=== PATIENT | female | born 1945 | race African-American/Black ===

== ENCOUNTER 2019-03-13 05:29 | Inpatient (IN) | payer OTHER, BC ==
[2019-02-28 10:20] LABS: HEMATOCRIT 33.2 % (37.0-47.0); MCH 28.4 pg (26.0-34.0); MCHC 33.1 g/dL (28.0-37.0); MCV 85.9 fL (80.0-100.0); RBC 3.86 mil/uL (4.20-5.00); RDW 14.1 % (10.5-14.5); WBC 5.6 thou/uL (4.0-11.0)
[2019-02-28 10:28] LABS: ALBUMIN 3.5 g/dL (3.4-5.0); CREATININE 1.7 mg/dL (0.6-1.0); POTASSIUM 4.3 mmol/L (3.5-5.1)
[2019-02-28 10:32] LABS: PROTIME 9.5 Seconds (9.3-11.4)
[2019-02-28 12:06] LABS: URINE BILIRUBIN NEGATIVE (Negative); URINE BLOOD NEGATIVE (Negative); URINE CLARITY CLEAR; URINE COLOR YELLOW; URINE GLUCOSE-RANDOM* NEGATIVE (Negative); URINE KETONES NEGATIVE (Negative); URINE LEUKOCYTES-REFLEX NEGATIVE (Negative); URINE NITRITE-REFLEX NEGATIVE (Negative); URINE PROTEIN (DIPSTICK) NEGATIVE (Negative); URINE UROBILINOGEN 0.2 E.U./dl (0.2-1.0)
[2019-03-01 01:06] LABS: GLYCOHEMOGLOBIN (HGB A1C) 6.8 % (4.8-5.6)
[~2019-03-13] VITALS: Ht 165.1 cm; Wt 113.9 kg
[2019-03-13] VITALS (10 sets, daily range): BP systolic 117–137; BP diastolic 61–81
[~2019-03-13 05:29] MED LIST: ASPIR 8181 MG PO; BAYER BACK & B1 EACH PO; IBUPROFEN 200200 M1 PO; LOSARTAN-HCTZ1 EACH PO; METFORMIN HCL500 MG PO; PRAVACHOL20 MG PO; SYNTHROID100 MC1 PO; VITAMIN D35000 UNI1 PO; XANAX 0.5 MG0.5 MG PO
--- NOTE | 2019-03-13 15:26 | NUR ---
PT ARRIVED ON UNIT FROM SURGERY APPRX.12:00. PT STABLE, VS STABLE. ORDERS IMPLEMENTED. PT ATE LUNCH AND TOERATED TI VERY WELL. C/O PAIN, MEDICATION REDUCED SCORE TO TWO. PT RESTING COMFORTABLY, WILL CONTINUE TO MONITOR.
[2019-03-14 05:51] VITALS: BP 137/65
[2019-03-14 05:55] LABS: HEMOGLOBIN 9.6 gm/dL (12.0-15.0); MCH 28.4 pg (26.0-34.0); MCV 86.2 fL (80.0-100.0); RBC 3.36 mil/uL (4.20-5.00); WBC 10.2 thou/uL (4.0-11.0)
--- NOTE | 2019-03-14 06:51 | NUR ---
Assumed pt care at 1900. Pt is A/OX4,VSS.Up with assist of 1 RW/GB to BR.Medicated for pain with Percocet, pt is allergic to Codeine can't take Hydrocodone will pass to day nurse. FREDDIE dsg in place R knee. Nicho hose/scd's in place. IVF infusing without problems. Resting comfortably at this time will continue to monitor.
[2019-03-14 07:18] VITALS: BP 130/59
--- NOTE | 2019-03-14 08:15 | NUR ---
While rounding on pt. she verbalized to this nurse that her right knee had gotten twisted. When she went to get up from the chair with her walker the chair had scooted away from her. She then landed back into the chair and her knee twisted. Pt. c/o increased pain. Ice pack applied and pain meds given (see emar) with some relief noted. Bed alarm is on.
--- NOTE | 2019-03-14 13:15 | O ---
[facility] [place] [address] OPERATIVE REPORT Name: BULMARO FINCH Room #: 449-I ADM IN M.R.#: [id number] Admission: 03/13/19 Attend Phys: Ron Chacon MD Discharge: Date of : 43 Report #: [id number] THIS REPORT FOR: //name// CC: DOLORES Chacon DATE OF SERVICE: 03/13/2019 PREOPERATIVE DIAGNOSIS: Right knee osteoarthritis. POSTOPERATIVE DIAGNOSIS: Right knee osteoarthritis. PROCEDURE: Right total knee arthroplasty using Navio robotic assistance. SURGEON: Ron Chacon MD GRANT WRITER: Karlie Stevens PA-C INDICATIONS FOR GRANT WRITER: Throughout the case, extensive retraction and manipulation of the knee was required. This was afforded to me by my car rental sales assistant. ANESTHESIA: LMA with an adductor canal block. IMPLANTS: Marie and Nephew size 5 Legion cobalt-chrome posterior stabilized femur, size 4 tibia, size 12 polyethylene and size 35 patella. TOURNIQUET TIME: 56 minutes. ESTIMATED BLOOD LOSS: 25 mL. COMPLICATIONS: None. SPECIMENS: None. CONDITION UPON LEAVING THE OPERATING ROOM: Stable. INDICATION FOR PROCEDURE: The patient is a 73-year-old female with severe right knee osteoarthritis. She had failed conservative measures for this and after discussion with her, she elected for right total knee arthroplasty. DESCRIPTION OF PROCEDURE: Risks, benefits, alternatives, complications were discussed in detail with the patient including but not limited to risk of anesthesia, risk of damage to nerves, arteries, blood vessels, risk for infection, bleeding, risk for continued knee pain and need for reoperation. Informed consent was obtained from the patient. Right knee was appropriately marked in the preoperative holding area. IV Ancef was given for preoperative [address] [address] OPERATIVE REPORT Name: BULMARO FINCH [place] Room #: 449-I [facility] ..#: [id number] Admission: 03/13/19 Attend Phys: Ron Chacon MD Discharge: Date of : 43 Report #: [id number] antibiotics. She was brought to the operating room and placed in supine position on operating room table. LMA anesthesia was induced without complication. Tourniquet was placed on the right thigh. Right lower extremity was prepped and draped in normal sterile fashion. Timeout was performed properly identifying the patient and procedure as well as the instrumentation and implants. All in the operating room were in agreement. Right lower extremity was exsanguinated, tourniquet was inflated. Tourniquet time was 56 minutes. Standard midline approach to knee was made with 10 blade through the skin. Dissection was taken down sharply to the fascia and deep flaps were developed medially and laterally. Fresh 10 blade was used to make a medial parapatellar arthrotomy and the knee was inspected. There was severe tricompartmental osteoarthritis. ACL and PCL were removed sharply. Osteophytes were removed from the femur. Reference pins were then placed in the femur and the tibia, and the knee was digitally mapped using the Navio robotic system. We sized the size 5 femur and a size 4 tibia with an 11 spacer. After acceptance of the intraoperative plan, the distal femoral cut was made with a Navio bur. The placed and pinned, and the chamfer cuts were made. After this, attention was turned to the tibia. A resection guide was placed using the Loggly system for placement and the tibial resection was made. After this, flexion and extension gaps were checked and was found to have good balance in flexion and extension both medially and laterally after removal of the medial tibial osteophytes. Tibia was sized, found to be a size 4. Size 4 tibial trial was placed, pinned and punched. A size 5 femoral trial was placed and the box cut was made. This was then trialed with a size 11 and then a size 12 polyethylene. Knee was taken through range of motion, found to have a millimeter laxity medially and laterally, both manually as well as digitally throughout range of motion. A 9 mm was then resected from the posterior surface of the patella and a size 35 patellar trial was placed. Knee was taken through range of motion, found to be stable, found to have good patellar tracking. Trial components were removed. Bony ends were thoroughly irrigated with normal saline. Final size 4 tibia, size 5 Legion cobalt chrome posterior stabilized femur and a size 35 patella were cemented in place using standard cementation techniques. While the cement cured, a periarticular injection consisting of morphine, ropivacaine, epinephrine and Toradol was placed around the knee joint capsule. After the cement cured, tourniquet was deflated. Hemostasis was obtained with Bovie cautery. Final size 12 polyethylene was placed. A gram of vancomycin was placed deep in the joint. The fascia was closed with 0 Vicryl, skin was closed with 2-0 Vicryl, 3-0 Monocryl. Dermabond and a FREDDIE dressing was applied. The patient tolerated this procedure well and went to recovery room under care of anesthesia postoperatively. <ELECTRONICALLY SIGNED> By: Ron Chacon MD 03/14/19 1315 [id number] Ron Chacon MD /nt
--- NOTE | 2019-03-14 14:24 | NUR ---
PT ADMITTED RELATED TO RIGHT TKR. CM REVIEWED CHART AND SPOKE WITH CARE TEAM. CM MET WITH PT AT BEDSIDE THIS DAY. PT IS A&O X4. CM ROLE INTRODUCED. PT INDICATED SHE LIVES IN AN APARTMENT WITH HER GRANDSON MICHELLEHT 6 STEPS TO ENTER AND NO STEPS INSIDE. PT INDICATED SHE HAD USED A CANE TO ASSIST WITH MONILITY VISUAL STYLIST. PT INDICATED SHE NEEDS A FWW FOR USE UPON DC. ISSUED BY [facility]. PT INDICATED DESIRE TO HAVE HH SERVICES SHE DOESN'T HAVE TRNSPORT TO OP PT. [facility] IS ABLE TO ACCEPT PT. IT IS ANTICPATED THAT PT WILL DC HOME THIS EVENING WITH [facility] PT AND A WALKER FROM [employer]. NO OTHER CM INTERVENTION INDICATED. CASE CLOSED.
[2019-03-14 15:23] VITALS: BP 136/64
[2019-03-14] MEDS ORDERED: NEURONTIN 300300 M1 PO (15:29)
[2019-03-14] MEDS ORDERED: ASPIR 8181 MG PO (15:29)
--- NOTE | 2019-03-14 16:32 | NUR ---
ASSUMED CARE OF PT AT APPROX 0700. PT IS ALERT AND ORIENTED X4, ABLE TO MAINTAIN 02 SAT >90 ON RA. DENIES PAIN CURRENTLY AND SOA. WORKS WELL WITH PT/OT. ASSESSMENT CHARTED. EVEN NON LABROED BREATHING. NAD NOTED. WORKING WELL TOWARDS DC WITH POSSIBLE ANTICIPATED DC TOMORROW. WILL CONTINUE TO MONITOR.
[2019-03-14 19:05] VITALS: BP 134/63
--- NOTE | 2019-03-14 20:25 | NUR ---
Call placed to Dr. Chacon and I spoke to the physician perinatal breastfeeding assistant Ms. Stevens. She was informed of pt. reporting that her knee had gotten twisted and it was more swollen and painful. No new orders at this time.
[2019-03-15 04:55] VITALS: BP 104/46
--- NOTE | 2019-03-15 05:43 | NUR ---
Pt. rested quietly at intervals during the night when checked on during frequent rounds. Up to the bathroom with walker,gait belt and one person assist. Pt. c/o itching and prn benadryl and hydroxyzine given during the shift (see emar) with some relief noted. Dressing dry and intact to right knee. Bed alarm is on.
[2019-03-15 06:30] LABS: HEMOGLOBIN 9.2 gm/dL (12.0-15.0); MCH 28.3 pg (26.0-34.0); MCHC 32.9 g/dL (28.0-37.0); MCV 86.1 fL (80.0-100.0); RBC 3.25 mil/uL (4.20-5.00); RDW 14.2 % (10.5-14.5); WBC 7.3 thou/uL (4.0-11.0)
[2019-03-15 07:43] VITALS: BP 131/59
--- NOTE | 2019-03-15 14:19 | NUR ---
PT HAD FALL YESTERDAY. ORTHO TO DO REPEAT XRAY AND ADDITIONAL PAIN CONTROL EFFORTS. PT WSA ISSUED A FWW BY [facility] [facility] AND [facility] IS ABLE TO ACCEPT FOR HH SERVICES. IT IS ANTICIPATED THAT PT WILL DC HOME TOMORROW. CM TO FOLLOW INDICATED WITH DC PLANNING.
[2019-03-15 14:20] VITALS: BP 125/55
[2019-03-15 19:35] VITALS: BP 132/58
--- NOTE | 2019-03-15 20:06 | NUR ---
ASSUMED CARE OF PT AT APPROX 1000. PT IS ALERT AND ORIENTED X4 AND ABLE TO MAINTAIN 02 SAT >90 ON RA. PAIN TREATED WITH PRN PAIN MEDICATION UIPON REQUEST. ASSESSMENT CHARTED. NAD NOTED.
--- NOTE | 2019-03-16 03:39 | NUR ---
Pt. rested quietly at intervals during the night when checked on during frequent rounds. She was given po pain meds for c/o pain to her right knee (see emar) with some relief noted. Pt. with elevated temperature and encouraged to use incentive spirometer. Temperature decreased after use. Bed alarm is on.
[2019-03-16 04:45] VITALS: BP 112/43
[2019-03-16 05:14] LABS: HEMATOCRIT 28.8 % (37.0-47.0); HEMOGLOBIN 9.5 gm/dL (12.0-15.0); MCH 28.5 pg (26.0-34.0); MCHC 32.9 g/dL (28.0-37.0); MCV 86.7 fL (80.0-100.0); RBC 3.33 mil/uL (4.20-5.00); RDW 14.3 % (10.5-14.5); WBC 10.8 thou/uL (4.0-11.0)
[2019-03-16 07:14] VITALS: BP 90/38
--- NOTE | 2019-03-16 12:51 | NUR ---
Received awake on bed. Due medications given as prescribed, able to swallow tablets w/o difficulty. A+Ox4. On blood sugar monitoring- taken and recorded, insulin sliding scale given as prescribed. S/P R Knee replacement. FREDDIE dressing in place, C/D/I, no signs of infection noted. Able to ambulate using walker, gait belt and moderate assist. With SL at L FA- intact. Visited by relative today. On room air. With episode of low blood pressure this am, asked CERTIFIED NOVELL ADMINISTRATOR to recheck BP after 15mins- within normal limits after rechecking. Pt seen by PT today, tolerated session well, able to walk in the hallway. Complained of pain, due PRN pain medication given as prescribed with partial pain relief.
[2019-03-16 14:12] VITALS: BP 103/41
[2019-03-16 15:56] VITALS: BP 103/41
--- NOTE | 2019-03-16 15:57 | NUR ---
CARE TEAM INDICATED THAT PT IS TO DISCHARGE HOME TOMORROW Tuesday03/17/19. PT IS TO HAVE [facility] HEALTH PT AND OT. PT WAS ISSUED A FWW FOR USE UPON DC BY [facility] [facility]. FAMILY IS TO TRANSPORT PT HOME. NO OTHER CM INTERVENTION INDICATED. CASE CLOSED.
[2019-03-16 20:15] VITALS: BP 132/46
--- NOTE | 2019-03-17 03:11 | NUR ---
ASSUMED CARE OF PT AT 1900HRS. PT IS A0X4 AND LETS NEEDS BE KNOWN. FALL PRECAUTION IN PLACE. PT REPORTED SOME PAIN AND WAS TREATED WITH PRN PAIN MEDS. VSS AND NO S/S OF ACUTE DISTRESS. PT WAS ABLE TO SLEEP PART OF THE SHIFT. WILL CONTINUE TO MONITOR.
[2019-03-17 03:52] VITALS: BP 114/41
[2019-03-17 08:00] VITALS: BP 120/41
[2019-03-17 08:47] VITALS: BP 120/41; BP 139/56
[2019-03-17 09:50] VITALS: BP 120/41
--- NOTE | 2019-03-17 12:08 | NUR ---
Received awake on bed. Due medications given as prescribed. A+Ox4. No IV noted. On room air. On blood sugar monitoring- taken and recorded; insulin sliding scale given as prescribed. With FREDDIE dressing in place at R knee- C/D/I, still swollen. Pt able to ambulate using gait belt, walker; on minimum to stand by assist. Pt encouraged to use IS and to ambulate. Assisted in ADLs. Pt with discharge orders from [facility] put in yesterday, pt with low grade fever at 3:52am- 37.5, 8:47am- 37.6. Called in [facility] today, Dr Galindo informed about low grade fever today, asked if still to proceed with discharge- Pt may go home. Dr Hare informed re: febrile episodes today- Ordered Chest xray and urinalysis to be done prior to discharge, if results are normal, may proceed with discharge. Pt visited by daughter today- to take home her mother, explained to her that ordered Chest xray and urinalysis prior to discharge, still a/w specimen to be sent and results to be in. PRN Tylenol given for low grade fever, pt kept comfortable.
[2019-03-17 12:15] LABS: URINE BILIRUBIN NEGATIVE (Negative); URINE BLOOD NEGATIVE (Negative); URINE CLARITY CLEAR; URINE COLOR YELLOW; URINE GLUCOSE-RANDOM* NEGATIVE (Negative); URINE KETONES NEGATIVE (Negative); URINE LEUKOCYTES-REFLEX NEGATIVE (Negative); URINE NITRITE-REFLEX NEGATIVE (Negative); URINE PROTEIN (DIPSTICK) NEGATIVE (Negative); URINE SPECIFIC GRAVITY 1.025 (1.005-1.035); URINE UROBILINOGEN 0.2 E.U./dl (0.2-1.0)
== END 2019-03-17 14:54 | disposition home health service (06) | DRG 470 ==
LOC: PRE 05:29 → TBA 06:13 → 4W 06:13 → PRE 09:35 → 4W 12:03 → PRE 12:38 → 4W 03-17 14:54
PROVIDERS: Hospitalist; ADMIT Orthopaedic Surgery
PROC: 8E0Y0CZ Robotic Assisted Procedure of Lower Extremity, Open Approach (ICD-10-PCS; principal; 2019-03-13)
PROC: 0SRC0J9 Replacement of Right Knee Joint with Synthetic Substitute, Cemented, Open Approach (ICD-10-PCS; principal; 2019-03-13)
DX: M17.11 Unilateral primary osteoarthritis, right knee (principal); Z68.41 Body mass index [BMI] 40.0-44.9, adult; I48.91 Unspecified atrial fibrillation; E03.9 Hypothyroidism, unspecified; E78.5 Hyperlipidemia, unspecified; E66.01 Morbid (severe) obesity due to excess calories; I12.9 Hypertensive chronic kidney disease with stage 1 through stage 4 chronic kidney disease, or unspecified chronic kidney disease; N18.9 Chronic kidney disease, unspecified; E11.22 Type 2 diabetes mellitus with diabetic chronic kidney disease; K21.9 Gastro-esophageal reflux disease without esophagitis; Z88.6 Allergy status to analgesic agent; Z88.2 Allergy status to sulfonamides; Z79.82 Long term (current) use of aspirin; Z79.899 Other long term (current) drug therapy; Z90.49 Acquired absence of other specified parts of digestive tract
CPT/HCPCS: 10047; 50010; 50101; 50415; 50954; 51130; 51225; 53000; 53078; 53364; 54118; 56527; 56528; 57095; 57103; 57110; 57127; 57180; 62110; 62900; 64039; 70005